=== PATIENT | male | born 1950 | race African-American/Black ===

== ENCOUNTER 2016-08-30 15:40 | Inpatient (IN) | payer OTHER ==
[~2016-08-30] VITALS: Ht 167.6 cm; Wt 81.0 kg
[~2016-08-30 15:40] MED LIST: AMLODIPINE BESYL5 MG PO; APIDRA100 UNIT/1 SC; ASPIR 8181 M1 PO; ATORVASTATIN CA80 MG PO; GLUCOPHAGE1000 MG PO; LANTUS 10100 UNITS/ SC; LANTUS 3 M100 UNITS1 SC; LIPITOR20 MG; LISINOPRIL-HCT1 EAC3 PO; LISINOPRIL40 MG PO; METFORMIN HCL1000 MG PO; NAPROSYN500 MG PO; NORCO 5/3251 TABLET PO; NORCO 7.5/321 TABLET PO; PRINIVIL20 MG PO; SIMVASTATIN40 MG PO; ST. JOSEPH ASPI81 MG PO; VALIUM5 MG PO; [UNRECOGNIZED DRUG - REMARK]
[2016-08-30 15:57] LABS: POINT-OF-CARE METER ID UU13113778
[2016-08-30 17:24] LABS: EOSINOPHIL (%) 1.9 % (0-5); EOSINOPHIL COUNT 0.1 K/uL (0-0.3); IMMATURE GRANULOCYTE (%) 0.1 % (0.0-0.7); IMMATURE GRANULOCYTE COUNT 0.1 K/uL; LYMPHOCYTE COUNT 1.1 K/uL (1.0-2.8); MCH 28.1 PG (29.0-34.0); MCHC 32.4 G/DL (30.0-36.0); MCV 86.8 FL (86-99); MEAN PLAT.VOLUME 11.1 uM^3 (9.0-12.4); MONOCYTE (%) 5.3 % (3-12); MONOCYTE COUNT 0.4 K/uL (0-0.8); NEUTROPHIL (%) 76.4 % (45-76); NEUTROPHIL COUNT 5.3 K/uL (1.8-6.4); PLATELET COUNT 233 K/uL (156-360); RBC DIS.WIDTH-CV 13.9 % (11.8-14.6); RBC DIS.WIDTH-SD 42.9 % (39-53); RED BLOOD COUNT 3.34 M/uL (4.00-5.50)
[2016-08-30 17:39] LABS: CHLORIDE 107 mEq/L (99-109); SODIUM 141 mEq/L (136-147)
[2016-08-30 17:42] LABS: TROP-I INTERPRETATION NEGATIVE; TROPONIN-I 0.04 ng/mL (0.0-0.30)
[2016-08-30 17:43] LABS: ANION GAP 8 MEQ/L (2-14)
[2016-08-30 17:44] LABS: TOTAL BILIRUBIN 0.3 mg/dL (0.0-1.0)
[2016-08-30 17:45] LABS: ALKALINE PHOSPHATASE 197 IU/L (3-129); GFR ESTIMATE (CALCULATED) 15 mL/min/; GLUCOSE 239 mg/dL (70-99)
[2016-08-30 17:46] LABS: UREA NITROGEN (BUN) 41 mg/dL (9-23)
[2016-08-30 18:31] LABS: ADD MIUA? YES; BILIRUBIN NEGATIVE; BLOOD SMALL; COLOR YELLOW ((YELLOW)); GLUCOSE (STRIP) NEGATIVE; KETONES NEGATIVE; LEUKOCYTES NEGATIVE; NITRITE NEGATIVE; PROTEIN (STRIP) >=300; SPECIFIC GRAVITY 1.013 (1.000-1.030); UROBILINOGEN 0.2 MG/DL (0.2-1.0)
[2016-08-30] MEDS ORDERED: LANTUS 10100 UNITS/ SC (19:06)
[2016-08-30] MEDS ORDERED: NORVASC10 MG PO (19:07)
[2016-08-30] MEDS ORDERED: LASIX20 MG PO (19:07)
[2016-08-30] MEDS ORDERED: ERGOCALCIF50000 UNIT PO (19:07)
[2016-08-30] MEDS ORDERED: TOPROL XL25 MG PO (19:08)
[2016-08-30] MEDS ORDERED: COREG12.5 M1 PO (19:08)
[2016-08-30 19:15] LABS: EPITHELIAL CELLS RARE /HPF; MUCUS NONE SEEN /LPF; RED BLOOD CELLS 0-5 /HPF (0-5); WHITE BLOOD CELLS 0-5 /HPF (0-5)
[2016-08-30 19:16] LABS: BACTERIA 1+ /HPF; CASTS NONE SEEN /LPF; CRYSTALS NONE SEEN
[2016-08-30 23:02] LABS: PROTHROMBIN TIME 10.4 (9.2-11.2)
[2016-08-30 23:34] LABS: POINT-OF-CARE METER ID UU14162513
[2016-08-30 23:40] LABS: TROP-I INTERPRETATION NEGATIVE; TROPONIN-I 0.04 ng/mL (0.0-0.30)
[2016-08-30 23:52] LABS: PTT 27.4 (25-32)
[2016-08-31] VITALS (7 sets, daily range): BP systolic 170–198; BP diastolic 84–102
[2016-08-31 06:58] LABS: EOSINOPHIL COUNT 0.1 K/uL (0-0.3); HEMATOCRIT 28.7 % (38.0-50.0); IMMATURE GRANULOCYTE (%) 0.2 % (0.0-0.7); LYMPHOCYTE COUNT 1.6 K/uL (1.0-2.8); MCH 27.8 PG (29.0-34.0); MCHC 32.4 G/DL (30.0-36.0); MCV 85.9 FL (86-99); MEAN PLAT.VOLUME 11.2 uM^3 (9.0-12.4); MONOCYTE (%) 7.2 % (3-12); MONOCYTE COUNT 0.5 K/uL (0-0.8); NEUTROPHIL (%) 65.4 % (45-76); NEUTROPHIL COUNT 4.3 K/uL (1.8-6.4); PLATELET COUNT 233 K/uL (156-360); RBC DIS.WIDTH-CV 14.2 % (11.8-14.6); RBC DIS.WIDTH-SD 44.4 % (39-53); RED BLOOD COUNT 3.34 M/uL (4.00-5.50); WHITE BLOOD COUNT 6.6 K/uL (4.1-10.2)
[2016-08-31 07:52] LABS: INTERNAL CONTROL VALID? YES
[2016-08-31 08:01] LABS: TROP-I INTERPRETATION NEGATIVE; TROPONIN-I 0.03 ng/mL (0.0-0.30)
[2016-08-31 08:08] LABS: ANION GAP 9 MEQ/L (2-14); CHLORIDE 107 MEQ/L (99-109); POTASSIUM 4.7 MEQ/L (3.7-5.4); SAMPLE HEMOLYSIS CHECK 0; SAMPLE ICTERIC CHECK 0; SAMPLE LIPEMIA CHECK 0; SODIUM 140 MEQ/L (136-147); TOTAL BILIRUBIN 0.4 MG/DL (0.0-1.0)
[2016-08-31 08:12] LABS: POINT-OF-CARE METER ID UU13113700
[2016-08-31 08:20] LABS: ALKALINE PHOSPHATASE 162 IU/L (3-129); GFR ESTIMATE (CALCULATED) 18 mL/min/; GLUCOSE 179 mg/dL (70-99); UREA NITROGEN (BUN) 40 mg/dL (9-23)
[2016-08-31 09:21] LABS: INTER. NORMALIZED RATIO 1.1; PROTHROMBIN TIME 10.8 (9.2-11.2)
[2016-08-31 09:28] LABS: PTT 50.2 (25-32)
[2016-08-31 13:34] LABS: POINT-OF-CARE METER ID UU13113700
[2016-08-31 22:11] LABS: INTER. NORMALIZED RATIO 1.1; PROTHROMBIN TIME 10.7 (9.2-11.2)
[2016-09-01 03:50] VITALS: BP 190/94
[2016-09-01 05:30] VITALS: BP 170/82; BP 170/88
[2016-09-01 07:25] LABS: HEMATOCRIT 28.5 % (38.0-50.0); MCH 27.9 PG (29.0-34.0); MCHC 32.6 G/DL (30.0-36.0); MCV 85.6 FL (86-99); MEAN PLAT.VOLUME 11.4 uM^3 (9.0-12.4); PLATELET COUNT 242 K/uL (156-360); RBC DIS.WIDTH-CV 14.1 % (11.8-14.6); RBC DIS.WIDTH-SD 44.2 % (39-53); RED BLOOD COUNT 3.33 M/uL (4.00-5.50)
[2016-09-01 07:40] VITALS: BP 181/86
[2016-09-01 09:58] LABS: ANION GAP 8 MEQ/L (2-14); CHLORIDE 107 MEQ/L (99-109); GFR ESTIMATE (CALCULATED) 18 mL/min/; MAGNESIUM 1.9 mg/dl (1.3-2.7); POTASSIUM 4.2 MEQ/L (3.7-5.4); SAMPLE HEMOLYSIS CHECK 0; SAMPLE ICTERIC CHECK 0; SAMPLE LIPEMIA CHECK 0; SODIUM 141 MEQ/L (136-147); UREA NITROGEN (BUN) 39 mg/dL (9-23)
[2016-09-01 09:59] LABS: GLUCOSE 102 mg/dL (70-99)
[2016-09-01 14:03] VITALS: BP 155/69
[2016-09-01 16:39] VITALS: BP 152/73
[2016-09-01 20:32] VITALS: BP 172/83
[2016-09-01 22:04] LABS: PROTHROMBIN TIME 10.2 (9.2-11.2)
[2016-09-02 00:13] VITALS: BP 157/74
[2016-09-02 03:35] VITALS: BP 188/97
[2016-09-02 08:16] VITALS: BP 176/92
[2016-09-02 11:35] VITALS: BP 183/94
[2016-09-02] MEDS ORDERED: LIDOCAINE700 MG TD (12:38)
[2016-09-02 12:44] LABS: ALKALINE PHOSPHATASE 149 IU/L (3-129); ANION GAP 11 MEQ/L (2-14); CHLORIDE 102 MEQ/L (99-109); GFR ESTIMATE (CALCULATED) 18 mL/min/; GLUCOSE 82 mg/dL (70-99); SAMPLE HEMOLYSIS CHECK 0; SAMPLE ICTERIC CHECK 0; SAMPLE LIPEMIA CHECK 0; SODIUM 138 MEQ/L (136-147); UREA NITROGEN (BUN) 44 mg/dL (9-23)
[2016-09-02 12:45] LABS: TOTAL BILIRUBIN 0.3 MG/DL (0.0-1.0)
[2016-09-02] MEDS ORDERED: CEFDINIR300 MG PO (13:17)
[2016-09-02 16:30] VITALS: BP 174/91
== END 2016-09-02 20:04 | disposition home or self-care (01) | DRG 312 ==
LOC: EME 15:40 → EDOF 21:10 → 5WEST 21:10 → 2EAST 08-31 10:20 → 5WEST 08-31 10:20 → 2EAST 08-31 21:51
PROVIDERS: Emergency Medicine; Hospitalist; Internal Medicine
DX: R55 Syncope and collapse (principal); J18.9 Pneumonia, unspecified organism; I13.2 Hypertensive heart and chronic kidney disease with heart failure and with stage 5 chronic kidney disease, or end stage renal disease; N18.5 Chronic kidney disease, stage 5; E11.22 Type 2 diabetes mellitus with diabetic chronic kidney disease; I50.30 Unspecified diastolic (congestive) heart failure; N25.81 Secondary hyperparathyroidism of renal origin; D41.4 Neoplasm of uncertain behavior of bladder; I25.10 Atherosclerotic heart disease of native coronary artery without angina pectoris; I25.2 Old myocardial infarction; D63.1 Anemia in chronic kidney disease; D50.9 Iron deficiency anemia, unspecified; Z91.19 Patient's noncompliance with other medical treatment and regimen; I27.2 Other secondary pulmonary hypertension; R31.29 Other microscopic hematuria; E66.9 Obesity, unspecified; N20.0 Calculus of kidney; E55.9 Vitamin D deficiency, unspecified; E11.40 Type 2 diabetes mellitus with diabetic neuropathy, unspecified; E11.319 Type 2 diabetes mellitus with unspecified diabetic retinopathy without macular edema; K75.9 Inflammatory liver disease, unspecified; H40.9 Unspecified glaucoma; Z79.4 Long term (current) use of insulin; Z87.891 Personal history of nicotine dependence
CPT/HCPCS: 36415; 70450; 71010; 71020; 71250; 76770; 78582; 80048; 80053; 80069; 81003; 82570; 82728; 82948; 83540; 83735; 83970; 84100; 84156; 84466; 84484; 85025; 85027; 85379; 85610; 85730; 87040; 87070; 87086; 87205; 87449; 88108; 93005; 93306; 93880; 93970; 94640; 94640 76; 95819; 99202; 99281; 99285; A9540; A9567; G0378; J0456; J0696; J7030; J7050

== ENCOUNTER 2016-12-08 07:10 | Day surgery (SDC) | payer OTHER ==
[~2016-12-08] VITALS: Ht 167.6 cm; Wt 78.5 kg
[~2016-12-08 07:10] MED LIST changes: +CEFDINIR300 MG PO; +COREG12.5 M1 PO; +ERGOCALCIF50000 UNIT PO; +LASIX20 MG PO; +LIDOCAINE700 MG TD; +NORVASC10 MG PO; +ROCALTROL0.25 MCG PO; +TOPROL XL25 MG PO
[2016-12-08 07:43] VITALS: BP 148/78
[2016-12-08 08:11] LABS: HEMATOCRIT 28.8 % (38.0-50.0); MCH 27.1 PG (29.0-34.0); MCHC 31.3 G/DL (30.0-36.0); MCV 86.7 FL (86-99); MEAN PLAT.VOLUME 10.3 uM^3 (9.0-12.4); PLATELET COUNT 271 K/uL (156-360); RBC DIS.WIDTH-CV 15.6 % (11.8-14.6); RBC DIS.WIDTH-SD 49.1 % (39-53); RED BLOOD COUNT 3.32 M/uL (4.00-5.50); WHITE BLOOD COUNT 4.4 K/uL (4.1-10.2)
[2016-12-08 08:28] LABS: ANION GAP 9 MEQ/L (2-14); CHLORIDE 108 MEQ/L (99-109); POTASSIUM 4.3 MEQ/L (3.7-5.4); SAMPLE HEMOLYSIS CHECK 0; SAMPLE ICTERIC CHECK 0; SAMPLE LIPEMIA CHECK 0; SODIUM 141 MEQ/L (136-147)
[2016-12-08 08:34] LABS: GFR ESTIMATE (CALCULATED) 12 mL/min/; GLUCOSE 80 mg/dL (70-99); UREA NITROGEN (BUN) 66 mg/dL (9-23)
[2016-12-08 11:26] LABS: POINT-OF-CARE METER ID UU13113675
[2016-12-08 12:05] VITALS: BP 144/69
[2016-12-08 13:00] VITALS: BP 128/61
== END 2016-12-08 13:25 | disposition home or self-care (01) ==
LOC: SDC 07:10
PROVIDERS: Surgery
DX: I12.0 Hypertensive chronic kidney disease with stage 5 chronic kidney disease or end stage renal disease (principal); N18.6 End stage renal disease; Z99.2 Dependence on renal dialysis; E11.22 Type 2 diabetes mellitus with diabetic chronic kidney disease; E78.00 Pure hypercholesterolemia, unspecified; E07.9 Disorder of thyroid, unspecified; Z87.891 Personal history of nicotine dependence; R94.31 Abnormal electrocardiogram [ECG] [EKG]
CPT/HCPCS: 80048; 82948; 85027; C1768; J0131; J0690; J1644; J2250; J2405; J2720; J3010

== ENCOUNTER 2017-02-10 10:04 | Emergency (ER) | payer OTHER ==
[~2017-02-10] VITALS: Ht 167.6 cm; Wt 75.6 kg
[2017-02-10 11:13] LABS: CHLORIDE 97 mEq/L (99-109); POTASSIUM 3.5 mEq/L (3.7-5.4); SODIUM 140 mEq/L (136-147)
[2017-02-10 11:15] LABS: GLUCOSE 115 mg/dL (70-99)
[2017-02-10 11:17] LABS: ANION GAP 12 MEQ/L (2-14)
[2017-02-10 11:19] LABS: GFR ESTIMATE (CALCULATED) 27 mL/min/
[2017-02-10 11:20] LABS: UREA NITROGEN (BUN) 26 mg/dL (9-23)
[2017-02-10 11:23] LABS: TROP-I INTERPRETATION NEGATIVE; TROPONIN-I 0.05 ng/mL (0.0-0.30)
[2017-02-10 13:06] VITALS: BP 174/88
== END 2017-02-10 13:07 | disposition left against medical advice (07) ==
LOC: EME 10:04
PROVIDERS: Emergency Medicine
DX: R07.9 Chest pain, unspecified (principal); I12.0 Hypertensive chronic kidney disease with stage 5 chronic kidney disease or end stage renal disease; N18.9 Chronic kidney disease, unspecified; E11.22 Type 2 diabetes mellitus with diabetic chronic kidney disease; Z99.2 Dependence on renal dialysis; Z79.4 Long term (current) use of insulin; E78.5 Hyperlipidemia, unspecified; I25.10 Atherosclerotic heart disease of native coronary artery without angina pectoris; Z87.891 Personal history of nicotine dependence; Z90.49 Acquired absence of other specified parts of digestive tract; Z79.82 Long term (current) use of aspirin
CPT/HCPCS: 71010; 80048; 83735; 84484; 93005; 99281; 99284

== ENCOUNTER 2017-07-19 12:57 | Emergency (ER) | payer OTHER ==
[~2017-07-19] VITALS: Ht 167.6 cm; Wt 76.9 kg
[~2017-07-19 12:57] MED LIST changes: +CARVEDILOL12.5 MG PO; +LEVAQUIN250 MG PO; +LOSARTAN POTASS50 MG PO; +NIFEDIPINE ER60 MG PO
[2017-07-19 13:40] LABS: POINT-OF-CARE METER ID UU13113778
[2017-07-19 15:30] VITALS: BP 209/99
== END 2017-07-19 13:13 | disposition left against medical advice (07) ==
LOC: EME 12:57
DX: Z04.1 Encounter for examination and observation following transport accident (principal); E11.22 Type 2 diabetes mellitus with diabetic chronic kidney disease; I12.0 Hypertensive chronic kidney disease with stage 5 chronic kidney disease or end stage renal disease; N18.6 End stage renal disease; Z99.2 Dependence on renal dialysis; Z79.4 Long term (current) use of insulin; Z53.21 Procedure and treatment not carried out due to patient leaving prior to being seen by health care provider
CPT/HCPCS: 82948; 99281

== ENCOUNTER 2017-08-03 16:11 | Inpatient (IN) | payer OTHER ==
[~2017-08-03] VITALS: Ht 167.6 cm; Wt 72.8 kg
[~2017-08-03 16:11] MED LIST changes: -CARVEDILOL12.5 MG PO; +CARVEDILOL25 MG PO
[2017-08-03 17:20] LABS: HEMATOCRIT 29.1 % (38.0-50.0); HEMOGLOBIN 9.3 G/DL (12.5-16.6); MCH 30.4 PG (29.0-34.0); MCV 95.1 FL (86-99); PLATELET COUNT 238 K/uL (156-360); RBC DIS.WIDTH-SD 52.3 % (39-53); RED BLOOD COUNT 3.06 M/uL (4.00-5.50); WHITE BLOOD COUNT 7.1 K/uL (4.1-10.2)
[2017-08-03 17:29] LABS: ALBUMIN 3.5 g/dL (3.2-4.8); CHLORIDE 98 mEq/L (99-109); POTASSIUM 4.4 mEq/L (3.7-5.4); SODIUM 140 mEq/L (136-147)
[2017-08-03 17:31] LABS: GLUCOSE 87 mg/dL (70-99)
[2017-08-03 17:33] LABS: TOTAL BILIRUBIN 0.5 mg/dL (0.0-1.0)
[2017-08-03 17:35] LABS: ALKALINE PHOSPHATASE 303 IU/L (3-129); CREATININE 5.8 mg/dL (0.6-1.3); GFR ESTIMATE (CALCULATED) 13 mL/min/ (58.99-99999)
[2017-08-03 17:36] LABS: UREA NITROGEN (BUN) 24 mg/dL (9-23)
[2017-08-03 17:37] LABS: AST (GOT) 71 IU/L (2-34)
[2017-08-03 17:38] LABS: ALT (GPT) 82 IU/L (3-49); LIPASE 16 U/L (1.0-51.0)
[2017-08-03 17:41] LABS: TROP-I INTERPRETATION NEGATIVE; TROPONIN-I 0.06 ng/mL (0.0-0.30)
[2017-08-03] MEDS ORDERED: TRULICITY1.5 MG/0.5 SC (21:16)
[2017-08-03] MEDS ORDERED: CARDURA1 M1 PO (21:16)
[2017-08-03] MEDS ORDERED: TRADJENTA5 MG PO (21:16)
[2017-08-03] MEDS ORDERED: LONITEN2.5 MG PO (21:17)
[2017-08-03 23:06] LABS: TROP-I INTERPRETATION NEGATIVE; TROPONIN-I 0.09 ng/mL (0.0-0.30)
[2017-08-04] VITALS (7 sets, daily range): BP systolic 120–194; BP diastolic 66–94
[2017-08-04 08:50] LABS: ALBUMIN 3.3 G/DL (3.2-4.8); ALKALINE PHOSPHATASE 267 IU/L (3-129); ALT (GPT) 63 IU/L (3-49); AST (GOT) 49 IU/L (2-34); CHLORIDE 100 MEQ/L (99-109); GFR ESTIMATE (CALCULATED) 10 mL/min/ (58.99-99999); GLUCOSE 95 mg/dL (70-99); POTASSIUM 4.8 MEQ/L (3.7-5.4); SODIUM 143 MEQ/L (136-147); TOTAL BILIRUBIN 0.5 MG/DL (0.0-1.0); TOTAL PROTEIN 6.6 G/DL (6.4-8.3); UREA NITROGEN (BUN) 31 mg/dL (9-23)
[2017-08-04 08:51] LABS: CREATININE 6.9 MG/DL (0.6-1.3)
[2017-08-04 09:24] LABS: TROP-I INTERPRETATION NEGATIVE; TROPONIN-I 0.06 ng/mL (0.0-0.30)
[2017-08-05 03:53] VITALS: BP 141/71
[2017-08-05 07:37] VITALS: BP 134/66
[2017-08-05 11:08] LABS: HEPATITIS B SURFACE ANTIGEN Nonreactive
[2017-08-05 11:13] LABS: HEPATITIS B SURFACE ANTIBODY REACTIVE
[2017-08-05 11:17] VITALS: BP 159/80
[2017-08-05 15:54] VITALS: BP 136/72
[2017-08-05 19:44] VITALS: BP 138/74
[2017-08-05 23:20] VITALS: BP 139/64
[2017-08-06 03:50] VITALS: BP 144/66
[2017-08-06 07:00] VITALS: BP 135/69
[2017-08-06 15:11] VITALS: BP 157/72
[2017-08-06 17:15] VITALS: BP 118/65
[2017-08-06 19:39] VITALS: BP 143/68
[2017-08-07] VITALS (7 sets, daily range): BP systolic 103–171; BP diastolic 53–84
[2017-08-07 09:17] LABS: ALBUMIN 3.1 g/dL (3.2-4.8)
[2017-08-07 09:18] LABS: CHLORIDE 101 mEq/L (99-109); POTASSIUM 4.2 mEq/L (3.7-5.4)
[2017-08-07 09:20] LABS: GLUCOSE 172 mg/dL (70-99); HEMATOCRIT 27.8 % (38.0-50.0); HEMOGLOBIN 9.2 G/DL (12.5-16.6); MCHC 33.1 G/DL (30.0-36.0); PLATELET COUNT 265 K/uL (156-360); RBC DIS.WIDTH-CV 14.1 % (11.8-14.6); RBC DIS.WIDTH-SD 47.1 % (39-53); RED BLOOD COUNT 3.07 M/uL (4.00-5.50); SODIUM 134 mEq/L (136-147); WHITE BLOOD COUNT 3.9 K/uL (4.1-10.2)
[2017-08-07 09:21] LABS: MCV 90.6 FL (86-99)
[2017-08-07 09:24] LABS: CREATININE 8.7 mg/dL (0.6-1.3); GFR ESTIMATE (CALCULATED) 8 mL/min/ (58.99-99999)
[2017-08-07 09:25] LABS: UREA NITROGEN (BUN) 53 mg/dL (9-23)
[2017-08-07 10:14] LABS: PHOSPHORUS 4.7 mg/dL (2.5-4.9)
[2017-08-07 11:41] LABS: VANCOMYCIN, TROUGH 13.7 MCG/ML (10-20)
[2017-08-08 04:10] VITALS: BP 113/61
[2017-08-08 08:30] VITALS: BP 126/67
[2017-08-08] MEDS ORDERED: LASIX80 MG PO (13:15)
== END 2017-08-08 16:15 | disposition home or self-care (01) | DRG 189 ==
LOC: EME 16:11 → ENRESERV 21:19 → EDOF 21:19 → 5SOUTH 21:19 → ENRESERV 23:46 → EDOF 08-04 00:28 → 5SOUTH 08-04 00:28 → CANRESERV 08-08 10:39 → ENRESERV 08-08 10:39 → 2SOUTH 08-08 10:44
PROVIDERS: Emergency Medicine; Hospitalist; Internal Medicine; Internal Medicine Nephrology; Nurse Practitioner Adult Health
PROC: 5A1D70Z Performance of Urinary Filtration, Intermittent, Less than 6 Hours Per Day (ICD-10-PCS; principal; 2017-08-04)
PROC: B2151ZZ Fluoroscopy of Left Heart using Low Osmolar Contrast (ICD-10-PCS; 2017-08-08)
PROC: 4A023N7 Measurement of Cardiac Sampling and Pressure, Left Heart, Percutaneous Approach (ICD-10-PCS; 2017-08-08)
PROC: B2111ZZ Fluoroscopy of Multiple Coronary Arteries using Low Osmolar Contrast (ICD-10-PCS; 2017-08-08)
DX: J96.01 Acute respiratory failure with hypoxia (principal); I13.2 Hypertensive heart and chronic kidney disease with heart failure and with stage 5 chronic kidney disease, or end stage renal disease; I50.32 Chronic diastolic (congestive) heart failure; N18.6 End stage renal disease; E11.22 Type 2 diabetes mellitus with diabetic chronic kidney disease; J18.9 Pneumonia, unspecified organism; Y95 Nosocomial condition; I27.20 Pulmonary hypertension, unspecified; I42.9 Cardiomyopathy, unspecified; N25.81 Secondary hyperparathyroidism of renal origin; Z99.2 Dependence on renal dialysis; D63.1 Anemia in chronic kidney disease; E78.5 Hyperlipidemia, unspecified; I25.10 Atherosclerotic heart disease of native coronary artery without angina pectoris; J40 Bronchitis, not specified as acute or chronic; I25.2 Old myocardial infarction; H40.9 Unspecified glaucoma; Z91.19 Patient's noncompliance with other medical treatment and regimen; Z79.4 Long term (current) use of insulin; Z79.82 Long term (current) use of aspirin; Z87.891 Personal history of nicotine dependence; Z87.442 Personal history of urinary calculi; Z82.49 Family history of ischemic heart disease and other diseases of the circulatory system; Z83.3 Family history of diabetes mellitus
CPT/HCPCS: 36415; 70450; 71046; 71250; 72125; 78452; 80053; 80069; 80202; 82948; 83520 90; 83690; 83880; 84484; 85027; 85379; 86021 90; 86038; 86235; 86706; 87340; 93005; 93017; 93970; 99202; 99281; 99285; A9500; C1769; C1887; J0692; J0881; J1270; J1644; J1756; J1815; J1940; J2250; J2785; J3010; J3370; J7050

== ENCOUNTER 2017-09-17 11:31 | Day surgery (SDC) | payer OTHER ==
[~2017-09-17] VITALS: Ht 167.6 cm; Wt 81.0 kg
[~2017-09-17 11:31] MED LIST changes: +CARDURA1 M1 PO; +LASIX80 MG PO; +LONITEN2.5 MG PO; +PREDNISONE10 MG PO; +TRADJENTA5 MG PO; +TRULICITY1.5 MG/0.5 SC
== END 2017-09-17 13:47 | disposition home or self-care (01) ==
LOC: CATH 11:31
PROVIDERS: Surgery
DX: T82.858A Stenosis of other vascular prosthetic devices, implants and grafts, initial encounter (principal); Y83.2 Surgical operation with anastomosis, bypass or graft as the cause of abnormal reaction of the patient, or of later complication, without mention of misadventure at the time of the procedure; I12.0 Hypertensive chronic kidney disease with stage 5 chronic kidney disease or end stage renal disease; E11.22 Type 2 diabetes mellitus with diabetic chronic kidney disease; F17.200 Nicotine dependence, unspecified, uncomplicated; N18.6 End stage renal disease; Z99.2 Dependence on renal dialysis; Z79.4 Long term (current) use of insulin; E78.00 Pure hypercholesterolemia, unspecified; E07.9 Disorder of thyroid, unspecified
CPT/HCPCS: 82948; 87641; C1725; C1769; C1874; C1894; J1644; J2250; J3010

== ENCOUNTER 2017-12-11 16:15 | Emergency (ER) | payer OTHER ==
[~2017-12-11] VITALS: Ht 167.6 cm; Wt 70.1 kg
[2017-12-11 16:41] LABS: HEMATOCRIT 38.3 % (38.0-50.0); HEMOGLOBIN 12.6 G/DL (12.5-16.6); MCH 30.1 PG (29.0-34.0); MCHC 32.9 G/DL (30.0-36.0); MCV 91.4 FL (86-99); PLATELET COUNT 266 K/uL (156-360); RBC DIS.WIDTH-CV 13.6 % (11.8-14.6); RBC DIS.WIDTH-SD 45.1 % (39-53); RED BLOOD COUNT 4.19 M/uL (4.00-5.50); WHITE BLOOD COUNT 4.4 K/uL (4.1-10.2)
[2017-12-11 16:51] LABS: ALBUMIN 4.3 g/dL (3.2-4.8)
[2017-12-11 16:52] LABS: CHLORIDE 96 mEq/L (99-109); POTASSIUM 4.6 mEq/L (3.7-5.4); SODIUM 143 mEq/L (136-147)
[2017-12-11 16:54] LABS: GLUCOSE 142 mg/dL (70-99); TOTAL PROTEIN 8.5 g/dL (6.4-8.3)
[2017-12-11 16:56] LABS: TOTAL BILIRUBIN 0.4 mg/dL (0.0-1.0)
[2017-12-11 16:57] LABS: ALKALINE PHOSPHATASE 146 IU/L (3-129)
[2017-12-11 16:58] LABS: CREATININE 6.1 mg/dL (0.6-1.3); GFR ESTIMATE (CALCULATED) 12 mL/min/ (58.99-99999)
[2017-12-11 16:59] LABS: AST (GOT) 42 IU/L (2-34); UREA NITROGEN (BUN) 19 mg/dL (9-23)
[2017-12-11 17:00] LABS: ALT (GPT) 32 IU/L (3-49)
[2017-12-11 17:01] LABS: LIPASE 42 U/L (1.0-51.0)
[2017-12-11] MEDS ORDERED: NORCO 5/3251 TABLET PO (17:46)
[2017-12-11 18:10] VITALS: BP 137/76
== END 2017-12-11 18:18 | disposition home or self-care (01) ==
LOC: EME 16:15
DX: R07.89 Other chest pain (principal); E78.5 Hyperlipidemia, unspecified; I25.2 Old myocardial infarction; N18.9 Chronic kidney disease, unspecified; Z99.2 Dependence on renal dialysis; Z90.49 Acquired absence of other specified parts of digestive tract; Z87.442 Personal history of urinary calculi; Z87.891 Personal history of nicotine dependence
CPT/HCPCS: 71046; 80053; 81003; 83690; 85027; 99281; 99283; J1885

== ENCOUNTER 2018-01-29 13:23 | Day surgery (SDC) | payer OTHER ==
[2018-01-29] MEDS ORDERED: HUMALOG MI100 UNIT/1 SC (14:13)
[2018-01-29] MEDS ORDERED: NORCO 7.5/321 TABLET PO (16:04)
== END 2018-01-29 16:50 | disposition home or self-care (01) ==
LOC: CATH 13:23
PROVIDERS: Surgery
DX: T82.818A Embolism due to vascular prosthetic devices, implants and grafts, initial encounter (principal); Y83.2 Surgical operation with anastomosis, bypass or graft as the cause of abnormal reaction of the patient, or of later complication, without mention of misadventure at the time of the procedure; I12.0 Hypertensive chronic kidney disease with stage 5 chronic kidney disease or end stage renal disease; E11.22 Type 2 diabetes mellitus with diabetic chronic kidney disease; N18.6 End stage renal disease; Z99.2 Dependence on renal dialysis; Z87.891 Personal history of nicotine dependence; Z79.4 Long term (current) use of insulin
CPT/HCPCS: 82948; 87641; C1725; C1757; C1769; C1894; J0690; J1644; J2250; J3010; S0020